=== PATIENT | male | born 1945 | race Caucasian/White ===

== ENCOUNTER 2019-04-03 19:05 | Emergency (ER) | payer MEDICARE, BC ==
[~2019-04-03] VITALS: Ht 175.3 cm; Wt 81.8 kg
[2019-04-03] MEDS ORDERED: NS 1,000 ML IV ONE (20:00)
[2019-04-03 20:24] LABS: BASO # 0.1 10^3/uL (0.0-0.2); BASO % 0.6 % (0.0-1.0); EOS # 0.1 10^3/uL (0.0-0.50); HEMATOCRIT 41.2 % (42.0-52.0); HEMOGLOBIN 14.5 g/dl (13.5-17.5); LYMPH # 1.6 10^3/uL (1.5-4.5); LYMPH % 12.7 % (24.0-44.0); MEAN CORPUSCULAR HGB CONC 35.2 g/dl (32.0-36.5); MEAN CORPUSCULAR VOLUME 96.7 fl (80.0-96.0); MONO # 0.9 10^3/uL (0.0-0.8); MONO % 6.9 % (0.0-5.0); NEUTROPHILS # 9.7 10^3/uL (1.8-7.7); NEUTROPHILS % 78.4 % (36.0-66.0); PLATELET COUNT, AUTOMATED 248 10^3/uL (150-450); RED BLOOD COUNT 4.26 10^6/uL (4.30-6.10); WHITE BLOOD COUNT 12.3 10^3/uL (4.0-10.0)
[2019-04-03 20:53] LABS: BLOOD UREA NITROGEN 17 MG/DL (7-18); CARBON DIOXIDE LEVEL 25 MEQ/L (21-32); CHLORIDE LEVEL 102 MEQ/L (98-107); CREATININE FOR GFR 0.85 MG/DL (0.70-1.30); GLOMERULAR FILTRATION RATE > 60.0 (>42); GLUCOSE, FASTING 105 MG/DL (70-100); POTASSIUM SERUM 3.8 MEQ/L (3.5-5.1); SODIUM LEVEL 135 MEQ/L (136-145)
[2019-04-03 20:54] LABS: CALCIUM LEVEL 9.2 MG/DL (8.8-10.2); CK-MB VALUE MASS 3.4 NG/ML (<3.6); CPK CREATINE PHOSPHOKINASE 165 U/L (39-308); ETHYL ALCOHOL (ETHANOL) 0.073 % (0.000-0.010); MAGNESIUM LEVEL 2.5 MG/DL (1.8-2.4); MB/CK RELATIVE INDEX 2.06 (< OR =4); TROPONIN I < 0.02 NG/ML (< 0.10)
[2019-04-03 21:45] VITALS: BP 140/84
--- NOTE | 2019-04-04 13:38 | ECGEPIP ---
- ED Test Date: 2019-04-03 Pat Name: DIPTI RAYMUNDO Department: Room: - Gender: Male Procurement Clerk: RENEE : 1945 Requested By: ALEISHA Kaur Order Number: [id number] Reading MD: Alan Ambriz Measurements Intervals [place] Rate: 68 P: 48 GA: 172 QRS: 24 QRSD: 98 T: 47 QT: 400 QTc: 426 Interpretive Statements SINUS RHYTHM WITH FREQUENT SUPRAVENTRICULAR PREMATURE COMPLEXES ABNORMAL RHYTHM ECG NO PRIORS FOR COMPARISON Electronically Signed on 04-04-2019 13:37:54 EDT by Alan Ambriz
== END 2019-04-03 21:55 | disposition home or self-care (01) ==
LOC: M ED 19:05
DX: I95.1 Orthostatic hypotension (principal); E86.0 Dehydration; R94.31 Abnormal electrocardiogram [ECG] [EKG]; I10 Essential (primary) hypertension; M48.00 Spinal stenosis, site unspecified; Z72.0 Tobacco use
CPT/HCPCS: 80048; 82550; 82553; 83735; 84443; 84484; 85025; 93005; 93041; 94760; 99285; G0480